=== PATIENT | female | born 1990 | race Hispanic/Latino ===

== ENCOUNTER → 2021-12-29 14:21 | Outpatient (CLI) | payer OTHER, SELFPAY ==
--- NOTE | 2021-12-29 | DI.MRI.S_ITS ---
PROCEDURE: MR CERVICAL SPINE WO CON INDICATIONS: Cervicalgia TECHNIQUE: Noncontrast sagittal T1 spin echo and T2 fast spin echo, sagittal STIR, foraminal oblique sagittal T2 fast spin echo, and axial gradient echo or T2 fast spin echo through the cervical spine. COMPARISON: None. FINDINGS: Image quality: Excellent. Alignment and Curvature: There is normal bony alignment. Bone Marrow: Marrow demonstrates normal overall signal. Spinal Cord: Visualized spinal cord has normal size and signal. No cerebellar tonsillar herniation. Paraspinous Soft Tissues: No paravertebral masses. Prevertebral soft tissues are normal in thickness. C2-C3: Normal appearance. C3-C4: Normal appearance. C4-C5: There is a moderate left paracentral disc protrusion which indents on the ventral cord. AP diameter of the canal at this level is 8.1 mm. Mild bilateral uncovertebral joint hypertrophy with mild bilateral foraminal narrowing. C5-C6: Very mild central posterior disc protrusion abutting the cord. AP diameter of the canal is 9.2 mm. Foramina are patent. C6-C7: Minimal central posterior disc protrusion. AP diameter of the canal is 9.5 mm. Mild right foraminal narrowing. C7-T1: No canal stenosis or foraminal stenosis. IMPRESSION: 1. At C4-C5, there is a moderate left paracentral disc protrusion. It indents on the cord. There is moderate canal stenosis. 2. At C5-C6, there is a small central posterior disc protrusion. There is mild canal stenosis. 3. At C6-C7, there is a minimal central posterior disc protrusion. There is mild canal stenosis. Dictated by: Juan Plaza M.D. on 12/29/2021 at 15:29 Approved by: Juan Plaza M.D. on 12/29/2021 at 15:35
== END ==
DX: M50.221 Other cervical disc displacement at C4-C5 level (principal); M48.02 Spinal stenosis, cervical region
CPT/HCPCS: 72141

== ENCOUNTER 2022-01-23 09:34 | Emergency (ER) | payer OTHER, SELFPAY ==
[2022-01-23 09:49] VITALS: BP 139/85; PULSE 98; RESP 17; TEMP 37; O2SAT 100; BMI 25.0
--- NOTE | 2022-01-23 10:09 | DI.US.S_ITS ---
PROCEDURE: US ABDOMEN LIMITED INDICATIONS: RUQ TECHNIQUE: Real-time focused scanning was performed of the abdomen, with image documentation. COMPARISON: None. FINDINGS: The liver is normal in size and demonstrates no focal lesions. The main portal vein demonstrates normal size and demonstrates normal appearing, hepatopetal flow. A small amount of sludge can be seen within the gallbladder. The gallbladder wall is not thickened, measuring 3 mm or less. No specific pericholecystic fluid is seen. The sonographic Gavin sign is negative. There is no biliary dilatation, the common bile duct measures 4 mm. No significant pancreatic abnormality is seen on these images. IMPRESSION: A small amount of sludge can be seen within gallbladder, without additional sonographic signs cholecystitis. No biliary dilatation. Dictated by: Emile Ren M.D. on 01/23/2022 at 9:57 Approved by: Emile Ren M.D. on 01/23/2022 at 9:58
[2022-01-23 12:28] LABS: Add Manual Diff / Slide Review NO; Basophils Absolute Auto 0 /uL (0-100); Basophils Percent Auto 0.4 % (0-2); Eosinophils Absolute Auto 0 /uL (0-450); Eosinophils Percent Auto 0.5 % (2-4); Hematocrit 44.7 % (36-46); Hemoglobin 15.3 g/dL (12.0-16.0); Lymphocytes Absolute Auto 1900 /uL (1100-4500); Lymphocytes Percent Auto 26.5 % (25-40); Mean Corpuscular HGB Conc 34.2 % (30-36); Mean Corpuscular Hemoglobin 30.8 PG (26-34); Mean Corpuscular Volume 89.9 fL (80-100); Monocytes Absolute Auto 400 /uL (0-900); Monocytes Percent Auto 4.8 % (3-14); Neutrophils Absolute Auto 5000 /uL (1500-7000); Neutrophils Percent Auto 67.8 % (50-75); Platelet Count 309 X10^3/uL (150-400); Red Blood Cell Count 4.98 X10^6/uL (4.0-5.2); Red Cell Distribution Width 12.2 % (11.6-14.8); White Blood Cell Count 7.3 X10^3/uL (4.5-11.0)
[2022-01-23 12:46] LABS: Alanine Aminotransferase 16 IU/L (<35); Albumin 5.1 g/dL (3.5-5.0); Albumin Globulin Ratio 1.4 (1.0-2.8); Alkaline Phosphatase 47 U/L (38-126); Aspartate Aminotransferase 25 IU/L (14-36); BUN Creatinine Ratio 10.8 (6-22); Bilirubin Total 0.6 mg/dL (0.2-1.3); Blood Urea Nitrogen 9 mg/dL (7-17); Calcium 9.6 mg/dL (8.4-10.2); Carbon Dioxide 29 mmol/L (22-32); Chloride 97 mmol/L (98-107); Estimated Glomerular Filt Rate > 60 mL/min (>60); Globulin 3.6 g/dL (1.7-4.1); Glucose 126 mg/dL (70-100); HEMOLYSIS < 15 (0-50); Lipase 101 U/L (23-300); Potassium 3.8 mmol/L (3.4-5.1); Sodium 136 mmol/L (137-145); Total Protein 8.7 g/dL (6.3-8.2)
--- NOTE | 2022-01-23 12:59 | ED_ITS ---
HPI - Abdominal Pain General Chief Complaint: Abdominal Pain Stated Complaint: pain lower right side - 3 days -nausious Time Seen by Provider: 01/23/22 12:20 Source: patient Mode of arrival: Ambulatory Limitations: no limitations History of Present Illness HPI narrative: This is a 31-year-old female with right side abdominal pain for the past 3 days. Patient has occasionally had symptoms in the past and been told she had issues with her gallbladder. She has been afebrile. She has had some nausea. Food seems to make her symptoms worsen typically will exacerbate her symptoms for couple hours and then start to improve. She had 1 episode of vomiting the past week but no additional. She has had normal bowel movements, no issues with dorsal urea, urgency or frequency. No vaginal bleeding or discharge. Patient states that she was started on HCTZ for hypertension in the past week and she takes Celebrex occasionally for back pain. Patient states she has not taken the Celebrex except for moral the one time she is unsure if it helped. She is allergic to codeine and hydrocortisone, ibuprofen gives her vomiting but she can take Celebrex. Occasional tobacco, occasional alcohol, no illicit. Her primary care is through the [facility]. She has not had any prior surgeries. Related Data Home Medications Medication Instructions Recorded Confirmed celecoxib 100 mg capsule (Celebrex) 100 mg PO BIDCC #0 10/08/17 hydrochlorothiazide 12.5 mg tablet 12.5 mg PO DAILY 01/23/22 01/23/22 methocarbamol 500 mg tablet 500 mg PO DAILY 01/23/22 01/23/22 Previous Rx's Medication Instructions Recorded ketorolac 10 mg tablet 10 mg PO Q6H PRN #14 tab 01/23/22 ondansetron 4 mg disintegrating 4 mg PO QID PRN #10 tab 01/23/22 tablet Allergies Allergy/AdvReac Type Severity Reaction Status Date / Time codeine [CODEINE] Allergy Severe ANAPHYLAXIS Verified 01/23/22 09:53 hydrocodone [HYDROCODONE] AdvReac Mild MILD Verified 01/23/22 09:53 ITCHING ibuprofen [IBUPROFEN] AdvReac Unknown VOMITING Verified 01/23/22 09:53 Review of Systems Review of Systems ROS Unobtainable: All systems reviewed & are unremarkable except as noted in HPI and below Patient History Social History Smoking Status: Current some day smoker Smoking Status: Current some day smoker alcohol intake frequency: a few times a month Substance Use Type: does not use Exam Narrative Exam Narrative: GENERAL: Alert and oriented x three, female in mild distress. HEENT: Head normocephalic, atraumatic, EOMI, pupils reactive, face symmetric, moist mucous membranes NECK: Supple, full range of motion CARDIOVASCULAR: Regular rate and rhythm without murmurs, rubs or gallops. RESPIRATORY: Breath sounds equal bilaterally, no wheezes rales or rhonchi. ABDOMEN: Soft, positive for right upper quadrant tenderness. Normoactive bowel sounds all 4 quadrants. No guarding or rebound, rigidity, no mass, no pulsatile mass or bruit. : No CVA tenderness EXTREMITIES: Normal range of motion, no clubbing or edema. Neurovascularly intact NEUROLOGICAL: Cranial nerves II through XII grossly intact. Moving all extremities SKIN: Warm, dry, no petechiae, no rashes or lesions. Initial Vital Signs Initial Vital Signs: Vital Signs Temperature 98.6 F 01/23/22 09:49 Pulse Rate 98 H 01/23/22 09:49 Respiratory Rate 17 01/23/22 09:49 Blood Pressure 139/85 01/23/22 09:49 Pulse Oximetry 100 01/23/22 09:49 Course Orders Ordered: ED Orders 01/23/22 10:09 US abdomen limited Stat 01/23/22 12:06 Complete Blood Count AUTO DIFF Stat Comprehensive Metabolic Panel Stat Lipase Stat Discontinued Medications Ketorolac Tromethamine (Ketorolac 30 Mg/Ml Vial) 30 mg IV NOW ONE Stop: 01/23/22 13:11 Last Admin: 01/23/22 13:18 Dose: 30 mg Documented by: EDDIE Reevaluation(s) Reevaluation #1: Patient feels much better after toradol and tolerating. Time: 13:46 Vital Signs Vital signs: Vital Signs - 8 hr 01/23/22 13:59 Pulse Rate 94 H Respiratory Rate 16 Blood Pressure 140/91 H Pulse Oximetry 98 MDM - Abdominal Pain Lab Data Result diagrams: 01/23/22 12:06 01/23/22 12:06 Labs: Lab Results 01/23/22 01/23/22 Range/Units 12:06 12:06 WBC 7.3 (4.5-11.0) X10^3/uL RBC 4.98 (4.0-5.2) X10^6/uL Hgb 15.3 (12.0-16.0) g/dL Hct 44.7 (36-46) % MCV 89.9 (80-100) fL MCH 30.8 (26-34) PG MCHC 34.2 (30-36) % RDW 12.2 (11.6-14.8) % Plt Count 309 (150-400) X10^3/uL Neut % (Auto) 67.8 (50-75) % Lymph % (Auto) 26.5 (25-40) % [place] % (Auto) 4.8 (3-14) % Eos % (Auto) 0.5 L (2-4) % Baso % (Auto) 0.4 (0-2) % Neut # (Auto) 5000 (9536-2919) /uL Lymph # (Auto) 1900 (8329-6676) /uL [place] # (Auto) 400 (0-900) /uL Eos # (Auto) 0 (0-450) /uL Baso # (Auto) 0 (0-100) /uL Sodium 136 L (137-145) mmol/L Potassium 3.8 (3.4-5.1) mmol/L Chloride 97 L (98-107) mmol/L Carbon Dioxide 29 (22-32) mmol/L BUN 9 (7-17) mg/dL Creatinine 0.83 (0.52-1.04) mg/dL Estimated GFR > 60 (>60) mL/min BUN/Creatinine Ratio 10.8 (6-22) Glucose 126 H (70-100) mg/dL Calcium 9.6 (8.4-10.2) mg/dL Total Bilirubin 0.6 (0.2-1.3) mg/dL AST 25 (14-36) IU/L ALT 16 (<35) IU/L Alkaline Phosphatase 47 (38-126) U/L Total Protein 8.7 H (6.3-8.2) g/dL Albumin 5.1 H (3.5-5.0) g/dL Globulin 3.6 (1.7-4.1) g/dL Albumin/Globulin Ratio 1.4 (1.0-2.8) Lipase 101 (23-300) U/L Point of care testing: Point of Care Testing Test Results Negative Urine Dip Bedside Urine Glucose Negative Bedside Urine Bilirubin - Negative Bedside Urine Ketone - Negative Urine Specific Michie 1.025 Bedside Urine Occult Blood - Negative Bedside Urine pH 6.0 Bedside Urine Protein - Negative Bedside Urine Urobilinogen - Negative Bedside Urine Nitrite - Negative Bedside Urine Leukocytes - Negative Esterase Imaging Data US - abdomen: Radiologist's Impression: [address] [id number] Ultrasound Report Signed Patient: Ekaterina Vigil MR#: [id number] : 1990 Acct:[id number] Age/Sex: 31 / F Date of Service: 01/23/22 Loc: ED Accession Number: [id number] ?? Procedure: US abdomen limited Ordering Provider: Milagros Gallegos D.O. PROCEDURE: US ABDOMEN LIMITED ? INDICATIONS:? RUQ ? TECHNIQUE:? Real-time focused scanning was performed of the abdomen, with image docum entation.? ? COMPARISON:? None. ? FINDINGS:? The liver is normal in size and demonstrates no focal lesions. The main portal vein demonstrates normal size and demonstrates normal appearing, hepatopetal flow.? ? A small amount of sludge can be seen within the gallbladder.? The gallbladder wall is not thickened, measuring 3 mm or less.? No specific pericholecystic fluid is seen.? The sonographic Gavin sign is negative. ? There is no biliary dilatation, the common bile duct measures 4 mm.? ? No significant pancreatic abnormality is seen on these images.? ? ? IMPRESSION:? A small amount of sludge can be seen within gallbladder, without additional sonographic signs cholecystitis. ? No biliary dilatation. ? ? Dictated by: Emile Ren M.D. on 01/23/2022 at 9:57 ? ? Approved by: Emile Ren M.D. on 01/23/2022 at 9:58?? MDM Narrative Medical decision making narrative: This is a 31-year-old female with symptoms consistent with gallbladder disease who is found to have sludge but without thickening, pericholecystic fluid who is tender on exam and afebrile. Patient has had nausea 1 episode of vomiting in the past week and intermittent symptoms. Labs are reassuring, point of care urine does not show signs of infection, no . Plan for pain control, follow up outpatient with General surgery for potential cholecystectomy and return precautions. Discharge Plan Departure Patient Disposition: Home Clinical Impression: Gallbladder sludge Activity Restrictions/Additional Instructions: Your imaging today shows sludge in the gallbladder but no other acute changes and your labs are reassuring but your exam findings are consistent with gallbladder disease. I think you would benefit from having your gallbladder out in the long-term. Referral has been given for general surgery please call today or tomorrow to set up follow-up appointment. You can take ketorolac 1 tablet every 6 hours as needed for pain. This is a type of NSAID do not take with Celebrex. You can take Zofran 1 tablet every 6 hours as needed for nausea. Prescription sent to [facility] in [place]. Please return for fevers, worsening abdominal pain, persistent vomiting, passing out, black or bloody stools or other new or concerning symptoms. Prescriptions: New ketorolac 10 mg tablet 10 mg PO Q6H PRN (Reason: pain) Qty: 14 0RF ondansetron 4 mg tablet,disintegrating 4 mg PO QID PRN (Reason: nausea and vomiting) Qty: 10 0RF No Action celecoxib [Celebrex] 100 MG capsule 100 mg PO BIDCC Qty: 0 0RF methocarbamol 500 mg tablet 500 mg PO DAILY 0RF hydrochlorothiazide 12.5 mg tablet 12.5 mg PO DAILY 0RF Referrals: Michele Mccall MD [Physician] - Pb Puentes MD [Primary Care Provider] - Stand Alone Forms: Work Release Note Visit Report Forms: Patient Portal/API
[2022-01-23] MEDS: KETOROLAC 30 MG/ML VIAL IV (13:18)
[2022-01-23 13:59] VITALS: BP 140/91; PULSE 94; RESP 16; O2SAT 98
== END 2022-01-23 14:06 | disposition home or self-care (01) ==
PROVIDERS: Emergency Provider Emergency Medicine
DX: K82.8 Other specified diseases of gallbladder (principal); R11.2 Nausea with vomiting, unspecified
CPT/HCPCS: 36415; 76705; 80053; 81003; 81025; 83690; 85025; 96374; 99284; J1885

== ENCOUNTER → 2022-02-23 07:40 | Outpatient (CLI) | payer OTHER, SELFPAY ==
--- NOTE | 2022-02-23 07:43 | DI.NM.S_ITS ---
PROCEDURE: NM HIDA WITH CCK PHARMACEUTICAL: 5.3 mCi Tc-99m mebrofenin IV; 1.5 mcg CCK IV. INDICATIONS: Gallbladder sludge TECHNIQUE: Following intravenous administration of Tc-99m mebrofenin, sequential anterior abdominal images were obtained. To evaluate the contractile response of the gallbladder in response to Cholecystokinin (CCK), sincalide (0.02 ?g/kg) was administered by slow intravenous infusion approximately 60 minutes after the administration of the radiopharmaceutical. Sequential imaging was continued for 30 minutes after the start of CCK infusion. Gallbladder ejection fraction was calculated. COMPARISON: [facility], ABDOMEN LIMITED, 01/23/2022, 11:25. FINDINGS: Biliary scan: There is normal tracer uptake and excretion by the liver. There is normal visualization of the intrahepatic ducts, common bile duct, and gallbladder. There is normal tracer transit into the duodenum. CCK stimulation: There is normal contractile response of the gallbladder to CCK infusion. The calculated gallbladder ejection fraction is 91%; normal values are above 35%. It has been shown that any patient abdominal pain after CCK administration is related to the rate of CCK injection, rather than to any underlying gallbladder disease (Clinical Nuclear Medicine 2012; 37: 63-70. Journal of Nuclear Medicine 2014; 55: 1-9). IMPRESSION: 1. Normal filling of gallbladder. No evidence for acute cholecystitis. 2. Normal contractile response of gallbladder to CCK stimulation. Dictated by: Graham Lemons M.D. on 02/23/2022 at 10:24 Approved by: Graham Lemons M.D. on 02/23/2022 at 10:25
== END ==
PROVIDERS: Referring Provider Surgery; Visit Provider Surgery
DX: K82.8 Other specified diseases of gallbladder (principal)
CPT/HCPCS: 78227; A9537; J2805

== ENCOUNTER → 2024-08-11 08:17 | Outpatient (CLI) | payer OTHER, SELFPAY ==
--- NOTE | 2024-08-11 08:20 | DI.MRI.S_ITS ---
PROCEDURE: MR HEAD/BRAIN WO/W CON INDICATIONS: COGNITIVE FUNCTION AND AWARENESS SYMPTOMS TECHNIQUE: Noncontrast axial T1 spin echo, axial T2 fast spin echo, sagittal and axial FLAIR, coronal T2 fast spin echo, axial gradient echo, axial diffusion and ADC through the brain. After the administration of contrast, axial and coronal and sagittal 3D VIBE or T1 spin echo with fat saturation through the brain. COMPARISON: None. FINDINGS: Image quality: Excellent. CSF Spaces: Basal cisterns are patent. No extra-axial fluid collections. Ventricles are normal in size and shape. Brain: No midline shift. No intracranial bleeds or masses. No abnormal intracranial enhancement. The brainstem appears normal. Diffusion-weighted images demonstrate no acute infarct. No chronic ischemic insults. Normal intravascular flow voids are present. Skull and face: Calvarial marrow is normal in signal. Orbits appear normal. Sinuses: Sinuses and mastoids appear clear. IMPRESSION: Normal brain MRI, without a cause of the patient's presenting history identified. No masses or abnormal enhancement can be seen. No findings of acute or subacute infarction can be seen. No prior territorial infarct can be seen. Dictated by: Emile Ren M.D. on 08/11/2024 at 10:08 Approved by: Emile Ren M.D. on 08/11/2024 at 10:09
== END ==
DX: R41.89 Other symptoms and signs involving cognitive functions and awareness (principal)
CPT/HCPCS: 70553; A9579